=== PATIENT | female | born 1945 | race African-American/Black ===

== ENCOUNTER 2016-09-21 16:17 | Inpatient (IN) | payer OTHER ==
[~2016-09-21] VITALS: Ht 162.6 cm; Wt 89.2 kg
[~2016-09-21 16:17] MED LIST: ALBU0.084 NEB; ASPI-231 PO; CEPH250C PO; CLON0.1T PO; FLUT50SP13; FURO40TA4 PO; GABA300C8 PO; IRONTAB35 OR; LISI40TA; METO25TA62 PO; NORT25CA PO; PANT40TA2 PO; [UNRECOGNIZED DRUG - CODE] PO
[2016-09-21 17:34] LABS: Basophils # (auto) 0 uL; Basophils % (auto) 0.2 % (0.0-2.0); Eosinophils # (auto) 0.3 uL; Eosinophils % (auto) 3.4 % (0.0-7.0); Hemoglobin 11.1 g/dL (12.2-16.2); Lymphocytes % (auto) 26.8 % (10.0-50.0); Mean Corpuscular Hemoglobin 29.5 pg (28.0-32.0); Mean Corpuscular Hgb Conc. 32.7 g/dL (32.0-36.0); Mean Corpuscular Volume 90.3 fL (80.0-100.0); Mean Platelet Volume 8.8 fL (7.4-10.4); Monocytes # (auto) 0.5 uL; Neutrophils # (auto) 4.7 uL; Neutrophils % (auto) 62.6 % (37.0-80.0); Platelet Count (auto) 295 10^3/uL (140-450); Red Cell Distribution Width 14.6 % (11.6-16.0); White Blood Cell 7.5 10^3/uL (4.4-10.8)
[2016-09-21 17:53] LABS: Albumin 2.7 g/dL (3.4-5.0); BUN/Creatinine Ratio 10.6; Calcium 8.3 mg/dL (8.5-10.1)
[2016-09-21 17:56] LABS: Bilirubin, Total 0.8 mg/dL (0.2-1.0); Total Protein 7.7 g/dL (6.4-8.2)
[2016-09-21 18:02] LABS: Potassium 2.9 mmol/L (3.5-5.1)
[2016-09-21 23:03] LABS: Urine Bilirubin Negative (Negative); Urine Blood Negative /uL (Negative); Urine Color Yellow (Yellow); Urine Glucose Normal (Normal); Urine Hyaline Cast FEW /lpf (0 - 2); Urine Ketone Negative (Negative); Urine Nitrite Negative (Negative); Urine RBC <1 /hpf (0 - 4); Urine Squamous Epithelial Cell FEW /hpf (<5); Urine Urobilinogen Normal (Negative); Urine pH 6.5 (5.0-8.0)
[2016-09-22] MEDS ORDERED: SODIUM CHLORIDE 0.9% 1,000 ML IVB ONE (02:56)
[2016-09-22] MEDS ORDERED: ONDANSETRON HCL 4 MG/2 ML VIAL IV ONE (03:00)
[2016-09-22 03:21] LABS: Basophils # (auto) 0 uL; Basophils % (auto) 0.5 % (0.0-2.0); Eosinophils # (auto) 0.1 uL; Eosinophils % (auto) 1.1 % (0.0-7.0); Hematocrit 35.7 % (36.0-46.0); Lymphocytes # (auto) 2.7 uL; Lymphocytes % (auto) 28.2 % (10.0-50.0); Mean Corpuscular Hgb Conc. 33.8 g/dL (32.0-36.0); Mean Corpuscular Volume 88.8 fL (80.0-100.0); Monocytes # (auto) 0.6 uL; Monocytes % (auto) 6.2 % (0.0-12.0); Neutrophils # (auto) 6.2 uL; Platelet Count (auto) 253 10^3/uL (140-450); Red Cell Distribution Width 14.4 % (11.6-16.0); White Blood Cell 9.7 10^3/uL (4.4-10.8)
[2016-09-22] MEDS ORDERED: cloNIDine HCL 0.1 MG TAB PO ONE (04:15)
[2016-09-22] MEDS: POTASSIUM CHL 20MEQ/100ML 100 ML IV SCH ×2 (04:19→08:00)
[2016-09-22 04:30] LABS: Urine RBC None Seen /hpf (0 - 4)
[2016-09-22] MEDS ORDERED: cefTRIAXone 1GM/50ML D5W 50 ML IV ONE (04:30)
[2016-09-22 04:50] LABS: Urine Bilirubin Negative (Negative); Urine Blood Negative /uL (Negative); Urine Color Yellow (Yellow); Urine Glucose Normal (Normal); Urine Hyaline Cast FEW /lpf (0 - 2); Urine Ketone Negative (Negative); Urine Nitrite Negative (Negative); Urine Squamous Epithelial Cell FEW /hpf (<5); Urine Urobilinogen Normal (Negative); Urine pH 6.5 (5.0-8.0)
[2016-09-22 08:07] LABS: INR 1.2 (0.9-1.15); Prothrombin Time 12.4 sec (9.37-12.3)
[2016-09-22] MEDS ORDERED: DOCUSATE SOD 100 MG CAP PO PRN (09:45)
[2016-09-22] MEDS ORDERED: NITROGLYCERIN 0.4 MG SL TAB SL PRN (09:45)
[2016-09-22] MEDS ORDERED: ACETAMINOPHEN 325 MG TAB PO PRN (09:45)
[2016-09-22] MEDS ORDERED: MORPHINE SULF INJ 2 MG/ML SYRINGE 1ML IV PRN ×2 (09:45)
[2016-09-22] MEDS ORDERED: ONDANSETRON HCL 4 MG/2 ML VIAL IV PRN (09:45)
[2016-09-22] MEDS ORDERED: TEMAZEPAM 15 MG CAP PO PRN (09:45)
[2016-09-22] MEDS: HCTZ 25 MG TAB PO SCH (09:54)
[2016-09-22] MEDS: FLUTICASONE PROP NASAL SPR 0.05 % (50MCG) 16GM EACHNOSTRI SCH ×2 (09:54→21:52)
[2016-09-22] MEDS ORDERED: FAMOTIDINE 20 MG TAB PO SCH (10:00)
[2016-09-22] MEDS: POTASSIUM CHLORIDE 8 MEQ TAB PO SCH (10:11)
[2016-09-22] MEDS: ASPirin-EC 81 mg tab PO SCH (10:13)
[2016-09-22] MEDS: FUROSEMIDE 40 MG TAB PO SCH (10:13)
[2016-09-22] MEDS: MULTIPLE VITAMIN TAB PO SCH (10:13)
[2016-09-22] MEDS: PANTOPRAZOLE 40 MG TAB PO SCH (10:13)
[2016-09-22] MEDS: LISINOPRIL 20 MG TAB PO SCH ×2 (10:14→21:50)
[2016-09-22] MEDS: CYANOCOBALAMIN 500 MCG TAB PO SCH (10:14)
[2016-09-22] MEDS: METOPROLOL SUCCINATE XL 50 MG TAB PO SCH ×2 (10:14→17:11)
[2016-09-22] MEDS: ENOXAPARIN SOD 40 MG/0.4 ML SYRINGE SC SCH (10:15)
[2016-09-22] MEDS: NORTRIPTYLINE HCL 25 MG CAP PO SCH ×2 (10:24→21:50)
[2016-09-22] MEDS: BOOST PLUS 8 ounce PO SCH ×3 (12:00→20:09)
[2016-09-22] MEDS: SODIUM CHLOR 0.9% PF (SALINE LOCK) 10ML VIAL IV SCH ×2 (12:50→20:09)
[2016-09-22] MEDS: GABAPENTIN 300 MG CAP PO SCH ×2 (14:00→21:50)
[2016-09-22 14:31] LABS: BUN/Creatinine Ratio 10.2; Potassium 3.9 mmol/L (3.5-5.1)
[2016-09-22] MEDS: FERROUS SULFATE 325 MG TAB PO SCH (18:00)
[2016-09-22 20:45] VITALS: BP 237/99
[2016-09-22 21:00] VITALS: BP 237/99
[2016-09-22 22:36] LABS: Temperature: 22.2 C (20.0-25.0)
[2016-09-22] MEDS: cloNIDine HCL 0.1 MG TAB PO PRN (22:48)
[2016-09-23] VITALS (7 sets, daily range): BP systolic 143–237; BP diastolic 72–99
[2016-09-23] MEDS: cloNIDine HCL 0.1 MG TAB PO PRN ×2 (04:49→17:08)
[2016-09-23 05:33] LABS: Basophils # (auto) 0 uL; Basophils % (auto) 0.5 % (0.0-2.0); Eosinophils # (auto) 0.5 uL; Eosinophils % (auto) 4.5 % (0.0-7.0); Hematocrit 33.8 % (36.0-46.0); Hemoglobin 11.1 g/dL (12.2-16.2); Lymphocytes # (auto) 3.6 uL; Lymphocytes % (auto) 34.2 % (10.0-50.0); Mean Corpuscular Hemoglobin 29.9 pg (28.0-32.0); Mean Corpuscular Hgb Conc. 32.7 g/dL (32.0-36.0); Mean Corpuscular Volume 91.5 fL (80.0-100.0); Mean Platelet Volume 8.9 fL (7.4-10.4); Monocytes # (auto) 0.9 uL; Monocytes % (auto) 8.2 % (0.0-12.0); Neutrophils # (auto) 5.5 uL; Neutrophils % (auto) 52.6 % (37.0-80.0); Platelet Count (auto) 218 10^3/uL (140-450); Red Cell Distribution Width 14.4 % (11.6-16.0); White Blood Cell 10.6 10^3/uL (4.4-10.8)
[2016-09-23] MEDS: BOOST PLUS 8 ounce PO SCH ×4 (06:00→22:00)
[2016-09-23 06:10] LABS: Albumin 2.6 g/dL (3.4-5.0); BUN/Creatinine Ratio 10.7; Calcium 8.8 mg/dL (8.5-10.1); Potassium 3.4 mmol/L (3.5-5.1)
[2016-09-23 06:12] LABS: Bilirubin, Total 0.8 mg/dL (0.2-1.0); Total Protein 7.3 g/dL (6.4-8.2)
[2016-09-23] MEDS: SODIUM CHLOR 0.9% PF (SALINE LOCK) 10ML VIAL IV SCH ×3 (07:04→22:51)
[2016-09-23] MEDS: METOPROLOL SUCCINATE XL 50 MG TAB PO SCH ×2 (07:05→17:04)
[2016-09-23] MEDS: GABAPENTIN 300 MG CAP PO SCH ×3 (07:05→22:50)
[2016-09-23] MEDS: FERROUS SULFATE 325 MG TAB PO SCH ×2 (08:04→17:43)
[2016-09-23] MEDS ORDERED: ADENOSINE 79 MG in GIVE UN-DILUTED 0 ML IV ONE (08:45)
[2016-09-23] MEDS ORDERED: cefTRIAXone 1GM/50ML D5W 50 ML IV SCH (09:00)
[2016-09-23] MEDS: FLUTICASONE PROP NASAL SPR 0.05 % (50MCG) 16GM EACHNOSTRI SCH ×2 (09:42→22:47)
[2016-09-23] MEDS: ASPirin-EC 81 mg tab PO SCH (09:42)
[2016-09-23] MEDS: POTASSIUM CHLORIDE 8 MEQ TAB PO SCH (09:45)
[2016-09-23] MEDS: NORTRIPTYLINE HCL 25 MG CAP PO SCH ×2 (09:45→22:50)
[2016-09-23] MEDS: MULTIPLE VITAMIN TAB PO SCH (09:45)
[2016-09-23] MEDS: CYANOCOBALAMIN 500 MCG TAB PO SCH (09:45)
[2016-09-23] MEDS: FUROSEMIDE 40 MG TAB PO SCH (09:46)
[2016-09-23] MEDS: PANTOPRAZOLE 40 MG TAB PO SCH (09:46)
[2016-09-23] MEDS: HCTZ 25 MG TAB PO SCH (09:47)
[2016-09-23] MEDS: LISINOPRIL 20 MG TAB PO SCH ×2 (09:47→22:51)
[2016-09-23] MEDS: ENOXAPARIN SOD 40 MG/0.4 ML SYRINGE SC SCH (09:47)
[2016-09-23] MEDS ORDERED: SENNA 8.6 MG TAB PO SCH (22:00)
[2016-09-24 01:23] VITALS: BP 141/69
[2016-09-24 05:00] VITALS: BP 162/69
[2016-09-24 05:39] VITALS: BP 129/72
[2016-09-24] MEDS: BOOST PLUS 8 ounce PO SCH ×2 (06:51→11:23)
[2016-09-24] MEDS: METOPROLOL SUCCINATE XL 50 MG TAB PO SCH (06:51)
[2016-09-24] MEDS: SODIUM CHLOR 0.9% PF (SALINE LOCK) 10ML VIAL IV SCH ×2 (06:51→13:26)
[2016-09-24] MEDS: GABAPENTIN 300 MG CAP PO SCH ×2 (06:51→13:26)
[2016-09-24 07:07] LABS: Calcium 8.9 mg/dL (8.5-10.1); Magnesium 1.9 mg/dL (1.6-2.6); Potassium 3.4 mmol/L (3.5-5.1)
[2016-09-24] MEDS: FERROUS SULFATE 325 MG TAB PO SCH (08:38)
[2016-09-24 08:59] VITALS: BP 142/63
[2016-09-24] MEDS: FLUTICASONE PROP NASAL SPR 0.05 % (50MCG) 16GM EACHNOSTRI SCH (10:06)
[2016-09-24] MEDS: ENOXAPARIN SOD 40 MG/0.4 ML SYRINGE SC SCH (10:06)
[2016-09-24] MEDS: POTASSIUM CHLORIDE 8 MEQ TAB PO SCH (10:07)
[2016-09-24] MEDS: ASPirin-EC 81 mg tab PO SCH (10:07)
[2016-09-24] MEDS: PANTOPRAZOLE 40 MG TAB PO SCH (10:07)
[2016-09-24] MEDS: CYANOCOBALAMIN 500 MCG TAB PO SCH (10:07)
[2016-09-24] MEDS: NORTRIPTYLINE HCL 25 MG CAP PO SCH (10:07)
[2016-09-24] MEDS: MULTIPLE VITAMIN TAB PO SCH (10:07)
[2016-09-24] MEDS: LISINOPRIL 20 MG TAB PO SCH (10:08)
[2016-09-24] MEDS: FUROSEMIDE 40 MG TAB PO SCH (10:08)
[2016-09-24 12:30] VITALS: BP 151/78
== END 2016-09-24 16:00 | disposition home health service (06) | DRG 291 ==
LOC: ER 16:23 → TELE 16:24 → DOU IN ICU 09-22 20:45 → TELE-EAST 09-23 19:08
PROVIDERS: ADMIT Internal Medicine; ATTEND Hospitalist
DX: I50.33 Acute on chronic diastolic (congestive) heart failure (principal); E43 Unspecified severe protein-calorie malnutrition; I13.0 Hypertensive heart and chronic kidney disease with heart failure and stage 1 through stage 4 chronic kidney disease, or unspecified chronic kidney disease; N39.0 Urinary tract infection, site not specified; D68.9 Coagulation defect, unspecified; K52.9 Noninfective gastroenteritis and colitis, unspecified; E87.6 Hypokalemia; D63.8 Anemia in other chronic diseases classified elsewhere; M10.9 Gout, unspecified; N18.3 Chronic kidney disease, stage 3 (moderate); I25.10 Atherosclerotic heart disease of native coronary artery without angina pectoris; E83.51 Hypocalcemia; E86.0 Dehydration; K59.00 Constipation, unspecified; W19.XXXA Unspecified fall, initial encounter; B19.20 Unspecified viral hepatitis C without hepatic coma; Z82.49 Family history of ischemic heart disease and other diseases of the circulatory system; D64.9 Anemia, unspecified; Z83.3 Family history of diabetes mellitus; Z90.49 Acquired absence of other specified parts of digestive tract; Y92.89 Other specified places as the place of occurrence of the external cause; Z79.899 Other long term (current) drug therapy; Z98.51 Tubal ligation status; Z79.82 Long term (current) use of aspirin; Z88.8 Allergy status to other drugs, medicaments and biological substances; Z68.33 Body mass index [BMI] 33.0-33.9, adult
CPT/HCPCS: 36415; 70450; 71010; 74176; 78452; 80048; 80053; 81001; 83735; 83880; 84443; 84484; 85025; 85610; 87081; 87086; 92610; 93005; 93017; 93886; 96361; 96365; 96372; 96375; J0153; J0696; J2405; J3480

== ENCOUNTER 2017-07-25 15:54 | Emergency (ER) | payer OTHER ==
[~2017-07-25] VITALS: Ht 162.6 cm; Wt 81.6 kg
[~2017-07-25 15:54] MED LIST changes: -CEPH250C PO; +CYAN100T PO; +GABA300C10 PO; -GABA300C8 PO; -[UNRECOGNIZED DRUG - CODE] PO
[2017-07-25 20:08] LABS: Basophils # (auto) 0.1 uL; Basophils % (auto) 1.2 % (0.0-2.0); Eosinophils # (auto) 0.4 uL; Eosinophils % (auto) 3.7 % (0.0-7.0); Hematocrit 39.8 % (36.0-46.0); Hemoglobin 13.3 g/dL (12.2-16.2); Lymphocytes # (auto) 3.4 uL; Lymphocytes % (auto) 33.8 % (10.0-50.0); Mean Corpuscular Hemoglobin 31.1 pg (28.0-32.0); Mean Corpuscular Hgb Conc. 33.5 g/dL (32.0-36.0); Monocytes # (auto) 0.8 uL; Monocytes % (auto) 7.7 % (0.0-12.0); Neutrophils # (auto) 5.3 uL; Neutrophils % (auto) 53.6 % (37.0-80.0); Nucleated Red Blood Cells % 0.1 %; Platelet Count (auto) 351 10^3/uL (140-450); Red Blood Cells 4.28 10^6/uL (4.0-5.20); Red Cell Distribution Width 13.1 % (11.8-14.3); White Blood Cell 9.9 10^3/uL (4.4-10.8)
[2017-07-25 20:24] LABS: Albumin 3.3 g/dL (3.4-5.0); BUN/Creatinine Ratio 12.4; Calcium 9.6 mg/dL (8.5-10.1); Potassium 3.6 mmol/L (3.5-5.1)
[2017-07-25 20:33] LABS: Bilirubin, Total 0.5 mg/dL (0.2-1.0); Total Protein 8.6 g/dL (6.4-8.2)
[2017-07-26] MEDS ORDERED: SODIUM CHLORIDE 0.9% 500 ML IV ONE (00:15)
[2017-07-26] MEDS ORDERED: MORPHINE SULFATE 10 MG/ML INJ 1ML SDV IV ONE (00:15)
[2017-07-26] MEDS ORDERED: ONDANSETRON HCL 4 MG/2 ML VIAL IV ONE (00:15)
[2017-07-26 02:45] VITALS: BP 118/72
== END 2017-07-26 01:49 | disposition home or self-care (01) ==
LOC: ER 15:58
DX: E86.0 Dehydration (principal); R06.02 Shortness of breath; N28.9 Disorder of kidney and ureter, unspecified; I50.9 Heart failure, unspecified; I11.0 Hypertensive heart disease with heart failure; M10.9 Gout, unspecified; I25.10 Atherosclerotic heart disease of native coronary artery without angina pectoris; Z98.51 Tubal ligation status; Z90.49 Acquired absence of other specified parts of digestive tract; Z88.6 Allergy status to analgesic agent
CPT/HCPCS: 36415; 71046; 80053; 84484; 85025; 93005; 96361; 96374; 96375; 99285; J2270; J2405; J7030

== ENCOUNTER 2019-04-10 22:19 | Inpatient (IN) | payer OTHER ==
[~2019-04-10] VITALS: Ht 162.6 cm; Wt 76.2 kg
[2019-04-10] MEDS ORDERED: cloNIDine HCL 0.1 MG TAB PO ONE (23:15)
[2019-04-10] MEDS ORDERED: hydrALAZINE HCL 20 MG/ML VL ONE (23:34)
[2019-04-10 23:37] LABS: Basophils # (auto) 0 uL; Basophils % (auto) 0.5 % (0.0-2.0); Eosinophils # (auto) 0.3 uL; Eosinophils % (auto) 3.1 % (0.0-7.0); Hematocrit 33.1 % (36.0-46.0); Hemoglobin 11.3 g/dL (12.2-16.2); Lymphocytes # (auto) 2.3 uL; Lymphocytes % (auto) 24.7 % (10.0-50.0); Mean Corpuscular Hemoglobin 30.7 pg (28.0-32.0); Mean Corpuscular Hgb Conc. 34.2 g/dL (32.0-36.0); Mean Corpuscular Volume 89.7 fL (80.0-100.0); Monocytes # (auto) 0.6 uL; Monocytes % (auto) 6.4 % (0.0-12.0); Neutrophils % (auto) 65.3 % (37.0-80.0); Platelet Count (auto) 206 10^3/uL (140-450); Red Blood Cells 3.68 10^6/uL (4.0-5.20); Red Cell Distribution Width 13.4 % (11.8-14.3); White Blood Cell 9.2 10^3/uL (4.4-10.8)
[2019-04-10 23:45] LABS: Urine Bacteria FEW /hpf (None Seen); Urine Blood Negative /uL (Negative); Urine Hyaline Cast FEW /lpf (0 - 2); Urine Specific Gravity 1.008 (1.001-1.035); Urine WBC 8 /hpf (0 - 5)
[2019-04-10] MEDS ORDERED: hydrALAZINE HCL 20 MG/ML VL IV ONE (23:45)
[2019-04-10 23:54] LABS: INR 1.04 (0.9-1.15); Partial Thromboplastin Time 24.9 sec (23.64-32.05)
[2019-04-10 23:56] LABS: Albumin 3.7 g/dL (3.4-5.0); Calcium 9.7 mg/dL (8.5-10.1); Magnesium 2.1 mg/dL (1.6-2.6); Potassium 3.2 mmol/L (3.5-5.1)
[2019-04-11] LABS: Bilirubin, Total 0.6 mg/dL (0.2-1.0); Total Protein 8.7 g/dL (6.4-8.2)
[2019-04-11] MEDS ORDERED: hydrALAZINE HCL 20 MG/ML VL IV ONE (01:15)
[2019-04-11] MEDS ORDERED: LABETALOL HCL 200 MG TAB PO ONE (02:00)
[2019-04-11] MEDS ORDERED: NICARDIPINE 25MG/250ML BAG KIT 250 ML IV SCH (03:45)
[2019-04-11] MEDS ORDERED: NICARDIPINE 25MG/250ML BAG KIT 250 ML IV ONE (03:48)
[2019-04-11] MEDS ORDERED: NITROGLYCERIN 0.4 MG SL TAB SL PRN (07:45)
[2019-04-11] MEDS ORDERED: DOCUSATE SOD 100 MG CAP PO PRN (07:45)
[2019-04-11] MEDS ORDERED: ACETAMINOPHEN 500 MG TAB PO PRN (07:45)
[2019-04-11] MEDS ORDERED: ONDANSETRON HCL 4 MG/2 ML VIAL IV PRN (07:45)
[2019-04-11] MEDS ORDERED: MORPHINE SULF INJ 2 MG/ML SYRINGE 1ML IV PRN ×2 (07:45)
[2019-04-11] MEDS: cefTRIAXone 1GM/50ML D5W 50 ML IV SCH (09:05)
[2019-04-11] MEDS: ASPirin-EC 81 mg tab PO SCH (09:05)
[2019-04-11] MEDS: ISOSORBIDE MONONITRATE ER 60 MG TAB PO SCH (09:05)
[2019-04-11] MEDS: GABAPENTIN 300 MG CAP PO SCH ×2 (09:06→22:01)
[2019-04-11] MEDS: FAMOTIDINE 20 MG TAB PO SCH (09:06)
[2019-04-11] MEDS: METOPROLOL TARTRATE 50 MG TAB PO SCH ×2 (09:06→22:01)
[2019-04-11] MEDS: hydrALAZINE HCL 20 MG/ML VL IV PRN ×3 (09:18→23:57)
[2019-04-11 11:21] LABS: Protein, Urine 379.6 mg/dL (0.0-11.9)
[2019-04-11] MEDS ORDERED: POTASSIUM CHL 20 Meq TABLET PO ONE (11:30)
[2019-04-11 12:16] VITALS: BP 151/73
[2019-04-11 13:00] VITALS: BP 151/73
[2019-04-11] MEDS: LISINOPRIL 20 MG TAB PO SCH (13:20)
[2019-04-11 14:43] LABS: BUN/Creatinine Ratio 8.8; Calcium 8.9 mg/dL (8.5-10.1); Magnesium 1.9 mg/dL (1.6-2.6); Potassium 3.1 mmol/L (3.5-5.1)
[2019-04-11 17:00] VITALS: BP 170/75
[2019-04-11] MEDS ORDERED: POTASSIUM EFFERVESENT TAB 25 MEQ PO ONE (17:15)
[2019-04-11] MEDS ORDERED: SODIUM CHLORIDE 0.9% 500 ML IV ONE (17:15)
--- NOTE | 2019-04-11 18:37 | NUR ---
Discharge planning per consult, patient has orders for a home health evaluation. Referral was sent to [facility]. Placed a follow up call, spoke with Nandini and was advised that they will accept patient and start of care will be within 24-48 hours upon discharge. Auth request was faxed to CM. Addendum: 04/11/19 at 1839 by JUNO ANGULO Amended: Links added. Addendum: 04/12/19 at 1639 by JUNO ANGULO Received an updated order for home health with BP monitoring and follow up and CHF clinic referral. Updated order was faxed to Balbir and [facility]. Balbir has patient on schedule to be seen tomorrow 10.2.19. CM-CM will arrange for follow up and referral appts.
--- NOTE | 2019-04-11 19:30 | NUR ---
Opening shift note Patient in bed alert and oriented x 4, verbally coherent, able to make needs known. Patient's respiration even and unlabored, denies pain and discomfort at this time. Pt on the phone with family will continue to monitor.
[2019-04-11 21:53] VITALS: BP 142/82
[2019-04-12 05:00] VITALS: BP 156/85
[2019-04-12] MEDS: hydrALAZINE HCL 20 MG/ML VL IV PRN ×2 (05:33→05:35)
[2019-04-12 06:31] LABS: Basophils # (auto) 0.1 uL; Basophils % (auto) 0.8 % (0.0-2.0); Eosinophils # (auto) 0.3 uL; Eosinophils % (auto) 4.1 % (0.0-7.0); Hematocrit 27.2 % (36.0-46.0); Hemoglobin 9.6 g/dL (12.2-16.2); Lymphocytes # (auto) 2.6 uL; Lymphocytes % (auto) 33.2 % (10.0-50.0); Mean Corpuscular Hemoglobin 31.1 pg (28.0-32.0); Mean Corpuscular Hgb Conc. 35.3 g/dL (32.0-36.0); Mean Corpuscular Volume 88.2 fL (80.0-100.0); Monocytes # (auto) 0.5 uL; Monocytes % (auto) 6.9 % (0.0-12.0); Neutrophils # (auto) 4.3 uL; Platelet Count (auto) 191 10^3/uL (140-450); Red Blood Cells 3.08 10^6/uL (4.0-5.20); Red Cell Distribution Width 13.7 % (11.8-14.3); White Blood Cell 7.8 10^3/uL (4.4-10.8)
[2019-04-12 06:58] LABS: BUN/Creatinine Ratio 9.1; Calcium 8.6 mg/dL (8.5-10.1); Magnesium 1.9 mg/dL (1.6-2.6); Potassium 4.3 mmol/L (3.5-5.1)
--- NOTE | 2019-04-12 07:30 | NUR ---
Opening Shift Note Assuming care of patient at this time. Patient is awake sitting up on edge of bed. Patient denies pain. Patient shows no signs or symptoms of distress or shortness of breath. Instructed patient on the plan of care for today and to call for assistance as needed. Patient is having some periods of confusion. Patient believes she is at "[facility]." When asked the date, patient responded with, "August 27, [birth year]19." Call light within reach. Will continue to round hourly and as needed.
[2019-04-12 08:35] VITALS: BP 204/87
[2019-04-12] MEDS: cefTRIAXone 1GM/50ML D5W 50 ML IV SCH (08:38)
[2019-04-12] MEDS: METOPROLOL TARTRATE 50 MG TAB PO SCH (08:39)
[2019-04-12] MEDS: GABAPENTIN 300 MG CAP PO SCH (08:39)
[2019-04-12] MEDS: ASPirin-EC 81 mg tab PO SCH (08:39)
[2019-04-12] MEDS: FAMOTIDINE 20 MG TAB PO SCH (08:40)
[2019-04-12] MEDS: ISOSORBIDE MONONITRATE ER 60 MG TAB PO SCH (08:40)
[2019-04-12] MEDS: LISINOPRIL 20 MG TAB PO SCH (08:42)
[2019-04-12 09:54] VITALS: BP 174/88
[2019-04-12] MEDS ORDERED: METOPROLOL TARTRATE 25 MG TAB PO SCH ×2 (10:00→22:00)
[2019-04-12] MEDS ORDERED: amLODIPine BESYLATE 5 MG TAB PO SCH ×2 (10:00)
[2019-04-12] MEDS ORDERED: cloNIDine HCL 0.1 MG TAB PO PRN (10:00)
[2019-04-12] MEDS ORDERED: METOPROLOL TARTRATE 25 MG TAB PO ONE ×2 (10:15)
--- NOTE | 2019-04-12 11:16 | NUR ---
Cardiac Clearance Spoke to Dr. Mcclain, patient is clear for discharge. Patient needs to follow-up with Dr. Mcclain as an outpatient. Will notify Dr. Ybarra.
[2019-04-12 11:30] VITALS: BP 136/61
--- NOTE | 2019-04-12 11:41 | NUR ---
Nephrology Clearance Spoke with Dr. Alvarenga at nurses' station. Patient is clear for discharge and needs to follow-up as an outpatient in 1-2 weeks. Will notify
[2019-04-12] MEDS ORDERED: AML5T PO (11:59)
[2019-04-12] MEDS ORDERED: CLO01T PO (11:59)
[2019-04-12] MEDS ORDERED: METO25TA5 PO (11:59)
[2019-04-12] MEDS ORDERED: ISO60SRT PO (11:59)
[2019-04-12] MEDS ORDERED: CEPH-37 PO (12:23)
[2019-04-12 12:58] VITALS: BP 138/74
[2019-04-12 13:20] VITALS: BP 125/66
--- NOTE | 2019-04-12 14:46 | NUR ---
Discharge Discharge instructions given as ordered. Encourage to follow up with PMD as instructed. All questions and concerns addressed. Patient verbalized understanding. Medication reconciliation form completed and copy given to patient. Patient educated on new medications and which medications to continue at home. Patient and son verbalized understanding. IVs removed with catheter intact, pressure dressing applied. Telemetry unit returned to ICU. Patient taken to vehicle via wheelchair with all personal belongings, accompanied by staff and family member. No distress noted at time of departure.
[2019-04-13 08:06] LABS: RPR Non Reactive (Non Reactive)
[2019-04-13 09:06] LABS: Immunoglobulin G, Serum 1640 mg/dL (700-1600)
[2019-04-14 09:24] LABS: Hepatitis B Surface Antibody Negative
[2019-04-14 11:50] LABS: Hepatitis C Antibody Positive (Negative)
== END 2019-04-12 14:35 | disposition home health service (06) | DRG 304 ==
LOC: ER 22:23 → TELE 22:24 → TELE-WESTW 04-11 11:53
PROVIDERS: ADMIT Nurse Practitioner Acute Care; ATTEND Internal Medicine
DX: I16.0 Hypertensive urgency (principal); N17.0 Acute kidney failure with tubular necrosis; N39.0 Urinary tract infection, site not specified; I50.32 Chronic diastolic (congestive) heart failure; N18.4 Chronic kidney disease, stage 4 (severe); I13.0 Hypertensive heart and chronic kidney disease with heart failure and stage 1 through stage 4 chronic kidney disease, or unspecified chronic kidney disease; D63.1 Anemia in chronic kidney disease; E78.5 Hyperlipidemia, unspecified; M10.9 Gout, unspecified; D64.9 Anemia, unspecified; I25.10 Atherosclerotic heart disease of native coronary artery without angina pectoris; E87.6 Hypokalemia; G62.9 Polyneuropathy, unspecified; K21.9 Gastro-esophageal reflux disease without esophagitis; T50.1X5A Adverse effect of loop [high-ceiling] diuretics, initial encounter; N18.3 Chronic kidney disease, stage 3 (moderate); Z90.49 Acquired absence of other specified parts of digestive tract; Z90.89 Acquired absence of other organs; Z98.51 Tubal ligation status; Z88.5 Allergy status to narcotic agent; Z79.899 Other long term (current) drug therapy
CPT/HCPCS: 36415; 70450; 71045; 76775; 80048; 80053; 81001; 82088; 82306; 82570; 82784; 83735; 83880; 83970; 84100; 84156; 84244; 84300; 84484; 85025; 85610; 85730; 86038; 86334; 86335; 86592; 86706; 86803; 87086; 93005; 93306; 96365; 96367; 96375; G0378; J0696

== ENCOUNTER 2019-12-23 17:02 | Inpatient (IN) | payer OTHER ==
[~2019-12-23] VITALS: Ht 160 cm; Wt 62.2 kg
[~2019-12-23 17:02] MED LIST changes: -ALBU0.084 NEB; -ASPI-231 PO; -CLON0.1T PO; -CYAN100T PO; -FLUT50SP13; -FURO40TA4 PO; -GABA300C10 PO; -IRONTAB35 OR; -LISI40TA; -METO25TA62 PO; +NITR-87 PO; -NORT25CA PO; -PANT40TA2 PO
[2019-12-23 18:04] LABS: Basophils # (auto) 0 10 ^3/uL (0-0.2); Basophils % (auto) 0.3 % (0.0-2.0); Eosinophils # (auto) 0 10 ^3/uL (0-0.8); Eosinophils % (auto) 0.4 % (0.0-7.0); Monocytes # (auto) 0.4 10 ^3/uL (0-1.3)
[2019-12-23 18:06] LABS: Hematocrit 16.6 % (36.0-46.0); Lymphocytes # (auto) 0.8 10 ^3/uL (0.4-5.4); Lymphocytes % (auto) 10.3 % (10.0-50.0); Mean Corpuscular Volume 93.8 fL (80.0-100.0); Monocytes % (auto) 4.3 % (0.0-12.0); Neutrophils # (auto) 6.9 10 ^3/uL (1.6-8.6); Neutrophils % (auto) 84.7 % (37.0-80.0); Nucleated Red Blood Cells % 0.1 %; Platelet Count (auto) 399 10^3/uL (140-450); Red Blood Cells 1.77 10^6/uL (4.0-5.20); Red Cell Distribution Width 16.5 % (11.8-14.3); White Blood Cell 8.1 10^3/uL (4.4-10.8)
[2019-12-23 18:15] LABS: Hemoglobin 5.3 g/dL (12.2-16.2)
[2019-12-23 18:17] LABS: INR 1.19 (0.9-1.15); Partial Thromboplastin Time 24.2 sec (23.64-32.05)
[2019-12-23 18:18] LABS: Alanine Aminotransferase 27 U/L (13-56); Albumin 2.7 g/dL (3.4-5.0); Anion Gap 12 (5-15); Blood Alcohol < 3.0 mg/dL (0-5); Calcium 8.6 mg/dL (8.5-10.1); Carbon Dioxide 21 mmol/L (21-32); Chloride 98 mmol/L (98-107); Glucose 83 mg/dL (74-106); Potassium 5.2 mmol/L (3.5-5.1); Sodium 131 mmol/L (136-145)
[2019-12-23 18:24] LABS: Alkaline Phosphatase 62 U/L (45-117); Aspartate Aminotransferase 176 U/L (15-37); BUN/Creatinine Ratio 10.1; Bilirubin, Total 0.8 mg/dL (0.2-1.0); GFR African American 6 mL/min; GFR Non-African American 5 mL/min; Total Protein 7.4 g/dL (6.4-8.2)
[2019-12-23 18:55] LABS: Blood Urea Nitrogen 85 mg/dL (7-18)
[2019-12-23] MEDS ORDERED: SODIUM BICARBONATE 8.4% INJ 50ML SYRINGE IV ONE (19:15)
[2019-12-23] MEDS ORDERED: FLUTICASONE PROP NASAL SPR 0.05 % (50MCG) 16GM EACHNOSTRI ONE (19:15)
[2019-12-23] MEDS ORDERED: MORPHINE SULF INJ 2 MG/ML SYRINGE 1ML IV PRN ×3 (19:15→19:30)
[2019-12-23] MEDS ORDERED: SODIUM ZIRCONIUM CYCL 10 GM PAK PO ONE (19:15)
[2019-12-23] MEDS ORDERED: hydrALAZINE HCL 20 MG/ML VL IV PRN (19:15)
[2019-12-23] MEDS ORDERED: FUROSEMIDE 100 MG/10ML VIAL IV ONE (19:15)
[2019-12-23] MEDS ORDERED: NITROGLYCERIN 0.4 MG SL TAB SL PRN ×2 (19:15→19:30)
[2019-12-23] MEDS ORDERED: LORazepam 0.5 MG TAB PO PRN (19:30)
[2019-12-23] MEDS ORDERED: ONDANSETRON HCL 4 MG/2 ML VIAL IV PRN (19:30)
[2019-12-23] MEDS ORDERED: HYDROcodone-ACET 5/325MG TAB PO PRN (19:30)
[2019-12-23] MEDS ORDERED: ALUM & MAG HYDROX-SIMETH LIQ(MAALOX) 30 ML PO PRN (19:30)
[2019-12-23 19:58] LABS: % Iron Saturation 17.7 % (15-50)
[2019-12-23] MEDS: cefTRIAXone 1GM/50ML D5W 50 ML IV SCH (20:06)
[2019-12-23] MEDS: FLUTICASONE PROP NASAL SPR 0.05 % (50MCG) 16GM EACHNOSTRI SCH (20:07)
[2019-12-23 21:17] VITALS: BP 128/59
[2019-12-23 21:32] VITALS: BP 123/63
--- NOTE | 2019-12-23 22:03 | NUR ---
Telemetry admit from ER YUAN LING admitted to Telemetry unit after SBAR received. Patient oriented to Krista Mendiola, primary RN, unit, room, bed, and unit policies regarding patient care and visiting hours. Patient now on continuous telemetry monitoring, tele box 68# and telemetry reading on arrival to unit is NSR 72. Patient placed on bedside oxygen, weighed by bedscale and encouraged to call if they need something. All questions and concerns addressed, patient verbalized understanding. Note:
[2019-12-23 22:28] VITALS: BP 134/69
[2019-12-23 22:41] VITALS: BP 133/56
[2019-12-23] MEDS ORDERED: LORazepam 2MG/ML-1ML VIAL IV PRN (23:15)
[2019-12-23] MEDS: NORTRIPTYLINE HCL 10 MG CAP PO SCH (23:42)
[2019-12-23] MEDS: ISOSORBIDE MONONITRATE IR 20 MG TAB PO SCH (23:43)
[2019-12-23] MEDS: SODIUM ZIRCONIUM CYCL 10 GM PAK PO SCH (23:44)
[2019-12-23] MEDS: DOCUSATE SOD 100 MG CAP PO PRN (23:45)
[2019-12-23] MEDS: MONTELUKAST SODIUM 10 MG TAB PO SCH (23:45)
[2019-12-24] VITALS (21 sets, daily range): BP systolic 110–144; BP diastolic 51–76
[2019-12-24] MEDS ORDERED: FUROSEMIDE 40 MG/4 ML VIAL IV ONE (00:20)
--- NOTE | 2019-12-24 05:36 | NUR ---
PT TURNED WITH PROMPTING THROUGHOUT THE NIGHT [id number];DENIES ANY PAIN;VSS;CALL LIGHT IN REACH.
[2019-12-24 05:56] LABS: Basophils # (auto) 0 10 ^3/uL (0-0.2); Eosinophils # (auto) 0.1 10 ^3/uL (0-0.8); Monocytes # (auto) 0.4 10 ^3/uL (0-1.3)
[2019-12-24] MEDS: SODIUM ZIRCONIUM CYCL 10 GM PAK PO SCH ×3 (05:56→23:06)
[2019-12-24] MEDS ORDERED: FUROSEMIDE 40 MG/4 ML VIAL IV SCH (06:00)
[2019-12-24 06:01] LABS: Basophils % (auto) 0.2 % (0.0-2.0); Eosinophils % (auto) 1.1 % (0.0-7.0); Hematocrit 19.6 % (36.0-46.0); Lymphocytes % (auto) 14.9 % (10.0-50.0); Mean Corpuscular Hgb Conc. 32.8 g/dL (32.0-36.0); Mean Corpuscular Volume 91.5 fL (80.0-100.0); Monocytes % (auto) 6.4 % (0.0-12.0); Neutrophils # (auto) 5.2 10 ^3/uL (1.6-8.6); Neutrophils % (auto) 77.4 % (37.0-80.0); Nucleated Red Blood Cells % 0.3 %; Platelet Count (auto) 348 10^3/uL (140-450); Red Blood Cells 2.14 10^6/uL (4.0-5.20); Red Cell Distribution Width 15.6 % (11.8-14.3); White Blood Cell 6.8 10^3/uL (4.4-10.8)
[2019-12-24 06:08] LABS: Albumin 2.5 g/dL (3.4-5.0); Calcium 8.5 mg/dL (8.5-10.1); Magnesium 3.8 mg/dL (1.6-2.6); Potassium 4.6 mmol/L (3.5-5.1)
[2019-12-24 06:11] LABS: Phosphorus 4.3 mg/dL (2.5-4.90); Total Protein 7.3 g/dL (6.4-8.2)
[2019-12-24 06:21] LABS: Hemoglobin 6.4 g/dL (12.2-16.2)
[2019-12-24 06:22] LABS: BUN/Creatinine Ratio 10.3
--- NOTE | 2019-12-24 06:28 | NUR ---
DR BAKER INFORMED OF PT'S NEW HCT/HGB LEVELS AND ALSO PT'S BUN. ORDER FOR TWO MORE UNITS OF PRBC'S PLACED WITH INFORMED OF HIGH BUN OF 85;HOWEVER PT IS DUE TO HAVE DIALYSIS TODAY.
[2019-12-24] MEDS: cefTRIAXone 1GM/50ML D5W 50 ML IV SCH (08:15)
--- NOTE | 2019-12-24 09:54 | NUR ---
The 2 rd of Blood initiated Orders received and verified with additional nurse by read back. Baseline Vitals obtained and charted. Patient no complaints of pain. Initiated at rate 60 for 15 mins then increased as tolerated. Will continue to monitor patient for change or indications of reaction. Additional charting as follow in [facility] transfusion history.
[2019-12-24] MEDS ORDERED: PANTOPRAZOLE 40 MG/10 ML VIAL INJ IV SCH (10:00)
[2019-12-24] MEDS ORDERED: GABAPENTIN 300 MG CAP PO SCH ×2 (10:00→22:00)
[2019-12-24] MEDS: FLUTICASONE PROP NASAL SPR 0.05 % (50MCG) 16GM EACHNOSTRI SCH ×2 (10:02→22:00)
[2019-12-24] MEDS: METOPROLOL SUCCINATE XL 50 MG TAB PO SCH (10:03)
[2019-12-24] MEDS: ALLOPURINOL 100 MG TAB PO SCH (10:03)
[2019-12-24] MEDS: ISOSORBIDE MONONITRATE IR 20 MG TAB PO SCH ×2 (10:03→23:06)
[2019-12-24] MEDS ORDERED: LORazepam 0.5 MG TAB PO PRN (13:30)
[2019-12-24] MEDS ORDERED: PANT40T PO (13:36)
[2019-12-24] MEDS ORDERED: AMLO10TA13 PO (13:36)
--- NOTE | 2019-12-24 13:36 | NUR ---
Spoke to garage door service technician, will be done today.
[2019-12-24] MEDS: IRON SUCROSE COMPLEX 200 MG in SODIUM CHL 0.9% 100 ML IV SCH (14:01)
--- NOTE | 2019-12-24 14:22 | NUR ---
Dr. Bailon at bedside made aware of K 4.6, still need to continue with Rachel. Noted and carried it our.
[2019-12-24 15:19] LABS: Urine Bacteria FEW /hpf (None Seen); Urine Blood 1+ /uL (Negative); Urine Hyaline Cast MOD /lpf (0 - 2); Urine Mucus FEW (None Seen); Urine Specific Gravity 1.011 (1.001-1.035); Urine WBC 122 /hpf (0 - 5); Urine WBC Clumps PRESENT /hpf (None Seen)
--- NOTE | 2019-12-24 15:20 | NUR ---
The 3 rd of Blood initiated.
[2019-12-24 15:34] LABS: Alcohol, Urine < 3.0 mg/dL (0-10); Amphetamine Screen, Urine NEGATIVE (NEGATIVE); Barbiturate Scree,Urine NEGATIVE (NEGATIVE); Benzodiazephine Screen, Urine NEGATIVE (NEGATIVE); Cannabinoid Screen, Urine NEGATIVE (NEGATIVE); Cocaine Screen, Urine NEGATIVE (NEGATIVE); Opiate Scree,Urine POSITIVE (NEGATIVE); Phencyclidine Screen, Urine NEGATIVE (NEGATIVE)
[2019-12-24] MEDS ORDERED: ERGOCALCIFEROL 50,000 UNIT(1.25MG) CAP PO SCH (17:00)
[2019-12-24] MEDS: FUROSEMIDE 40 MG TAB PO SCH (17:29)
--- NOTE | 2019-12-24 19:25 | NUR ---
Opening Shift Note Pt is resting in bed with eyes closed and resp rate is even and unlabored. No s/s of any distress noted at thsi time. Lab is at bedside drawing blood for H&H level. Will continue to monitor pt q 1 hr and prn.
[2019-12-24 20:11] LABS: Hematocrit 30.4 % (36.0-46.0); Hemoglobin 9.9 g/dL (12.2-16.2)
[2019-12-24 20:23] LABS: INR 1.14 (0.9-1.15); Partial Thromboplastin Time 26.7 sec (23.64-32.05)
--- NOTE | 2019-12-24 21:15 | NUR ---
HGB is 9.9 at this time.
[2019-12-24] MEDS: NORTRIPTYLINE HCL 10 MG CAP PO SCH (22:00)
--- NOTE | 2019-12-24 22:05 | NUR ---
Dr Larry Ybarra at bedside.
[2019-12-24] MEDS: MONTELUKAST SODIUM 10 MG TAB PO SCH (23:07)
[2019-12-25 05:00] VITALS: BP 112/58
[2019-12-25] MEDS: SODIUM ZIRCONIUM CYCL 10 GM PAK PO SCH (06:24)
[2019-12-25 08:59] VITALS: BP 111/56
[2019-12-25] MEDS: ISOSORBIDE MONONITRATE IR 20 MG TAB PO SCH ×2 (09:20→22:43)
[2019-12-25] MEDS: METOPROLOL SUCCINATE XL 50 MG TAB PO SCH (09:20)
[2019-12-25] MEDS: cefTRIAXone 1GM/50ML D5W 50 ML IV SCH (09:21)
[2019-12-25] MEDS: ALLOPURINOL 100 MG TAB PO SCH (09:21)
[2019-12-25] MEDS: FUROSEMIDE 40 MG TAB PO SCH (09:21)
[2019-12-25] MEDS: FLUTICASONE PROP NASAL SPR 0.05 % (50MCG) 16GM EACHNOSTRI SCH ×2 (09:21→22:40)
[2019-12-25] MEDS ORDERED: FUROSEMIDE 20 MG TAB PO SCH (10:00)
[2019-12-25] MEDS ORDERED: GABAPENTIN 300 MG CAP PO SCH (10:00)
[2019-12-25 10:08] LABS: Basophils # (auto) 0 10 ^3/uL (0-0.2); Basophils % (auto) 0.2 % (0.0-2.0); Eosinophils # (auto) 0 10 ^3/uL (0-0.8); Eosinophils % (auto) 0.1 % (0.0-7.0); Hematocrit 26.6 % (36.0-46.0); Hemoglobin 8.7 g/dL (12.2-16.2); Lymphocytes # (auto) 0.7 10 ^3/uL (0.4-5.4); Lymphocytes % (auto) 7.8 % (10.0-50.0); Mean Corpuscular Hemoglobin 29.8 pg (28.0-32.0); Mean Corpuscular Hgb Conc. 32.7 g/dL (32.0-36.0); Mean Corpuscular Volume 91.1 fL (80.0-100.0); Monocytes # (auto) 0.4 10 ^3/uL (0-1.3); Monocytes % (auto) 4.2 % (0.0-12.0); Neutrophils # (auto) 8.1 10 ^3/uL (1.6-8.6); Neutrophils % (auto) 87.7 % (37.0-80.0); Nucleated Red Blood Cells % 0.3 %; Platelet Count (auto) 374 10^3/uL (140-450); Red Blood Cells 2.92 10^6/uL (4.0-5.20); Red Cell Distribution Width 16.5 % (11.8-14.3); White Blood Cell 9.2 10^3/uL (4.4-10.8)
[2019-12-25 10:18] LABS: Albumin 2.5 g/dL (3.4-5.0); Calcium 8.3 mg/dL (8.5-10.1); Potassium 3.8 mmol/L (3.5-5.1)
[2019-12-25 10:22] LABS: BUN/Creatinine Ratio 10.6; Bilirubin, Total 0.8 mg/dL (0.2-1.0); Total Protein 7.4 g/dL (6.4-8.2)
--- NOTE | 2019-12-25 11:38 | NUR ---
Dr. Lundberg paged regarding BUN 83 and K 3.8 if patient still need Lokelma , spoke Asa. to Awaiting to call back.
[2019-12-25] MEDS: IRON SUCROSE COMPLEX 200 MG in SODIUM CHL 0.9% 100 ML IV SCH (12:55)
[2019-12-25 13:00] VITALS: BP 122/70
--- NOTE | 2019-12-25 14:36 | NUR ---
Dr. Xiong paged regarding recommendation for anticoagulation and where HD cath can be placed . Awaiting to call back.
--- NOTE | 2019-12-25 16:28 | NUR ---
Dr. Smith at bedside, received new order, noted and carried it out.
[2019-12-25] MEDS: SODIUM CHLORIDE 0.9% 1,000 ML IV SCH (16:49)
[2019-12-25 17:00] VITALS: BP 134/63
--- NOTE | 2019-12-25 19:00 | NUR ---
Opening Shift Note Assumed care of patient who is resting inn bed, eyes closed respirations even and unlabored . No S/S of distress/SOB or pain. Instructed on POC and to call for assist PRN, will continue to monitor for changes Q1hr and PRN.
[2019-12-25 21:00] VITALS: BP 134/63
[2019-12-25] MEDS: MONTELUKAST SODIUM 10 MG TAB PO SCH (22:44)
[2019-12-25] MEDS: NORTRIPTYLINE HCL 10 MG CAP PO SCH (23:35)
[2019-12-26 05:00] VITALS: BP_SYST 124; BP_SYST 128; BP_DIAS 51; BP_DIAS 84
[2019-12-26] MEDS: SODIUM CHLORIDE 0.9% 1,000 ML IV SCH ×2 (05:50→14:32)
[2019-12-26] MEDS ORDERED: SODIUM ZIRCONIUM CYCL 10 GM PAK PO SCH (06:00)
[2019-12-26 06:30] LABS: Hematocrit 25.7 % (36.0-46.0)
[2019-12-26 06:34] LABS: Hemoglobin 8.5 g/dL (12.2-16.2); Mean Corpuscular Hemoglobin 30.4 pg (28.0-32.0); Mean Corpuscular Hgb Conc. 33.2 g/dL (32.0-36.0); Mean Corpuscular Volume 91.7 fL (80.0-100.0); Platelet Count (auto) 356 10^3/uL (140-450); Red Cell Distribution Width 16.4 % (11.8-14.3); White Blood Cell 7.4 10^3/uL (4.4-10.8)
[2019-12-26 06:52] LABS: Albumin 2.4 g/dL (3.4-5.0); Calcium 7.9 mg/dL (8.5-10.1); Potassium 3.6 mmol/L (3.5-5.1)
[2019-12-26 06:53] LABS: Band Neutrophils % (manual) 0; Basophils % (manual) 0 (0.0-2.0); Blast Cells 0; Metamyelocytes % 0; Myelocytes % 0; Promyelocytes % 0; Reactive Lymphocytes 0
[2019-12-26 06:55] LABS: BUN/Creatinine Ratio 10.7; Bilirubin, Total 0.6 mg/dL (0.2-1.0); Total Protein 7.2 g/dL (6.4-8.2)
[2019-12-26 07:28] LABS: Eosinophils % (manual) 3 (0-7); Lymphocytes % (manual) 14 (10.0-50.0); Monocytes % (manual) 1 (0-12)
--- NOTE | 2019-12-26 07:30 | NUR ---
Patient NPO Patient NPO for procedure.
--- NOTE | 2019-12-26 07:30 | NUR ---
Opening Note Assumed patient care from NOC RNJoss. Patient currently resting with eyes closed, respirations even and unlabored, safety precautions in place, will continue to monitor.
--- NOTE | 2019-12-26 07:30 | NUR ---
Rounds Patient currently sitting up in bed speaking with family members. No signs of distress at this time, respirations even and unlabored, safety precautions in place, will continue to monitor.
--- NOTE | 2019-12-26 07:56 | NUR ---
Radiology Spoke with Amada in radiology, per RN, patient to remain NPO for dialysis catheter placement. Per Amada, will pass on Dr. Ybarra request to review cardiology report to Dr. Foy, anticoagulants to be held prior to placement.
--- NOTE | 2019-12-26 08:17 | NUR ---
Called Ged Tutor Patient scheduled for 1000.
--- NOTE | 2019-12-26 08:35 | NUR ---
Radiology Nurse at Bedside production mechanic tin cansAmada, at bedside discussing consents with patient and family member. Patient and family consent to procedure.
[2019-12-26 09:00] VITALS: BP 124/63
[2019-12-26] MEDS: cefTRIAXone 1GM/50ML D5W 50 ML IV SCH (09:27)
--- NOTE | 2019-12-26 09:27 | NUR ---
New IV New IV started, 22 gauge left wrist, on first attempt, blood return noted, and flushes easily, no signs of distress noted at this time. Right AC IV discontinued due to infiltration, pressure dressing applied, catheter intact, will continue to monitor.
[2019-12-26] MEDS: METOPROLOL SUCCINATE XL 50 MG TAB PO SCH (10:00)
[2019-12-26] MEDS: FUROSEMIDE 40 MG TAB PO SCH (10:00)
[2019-12-26] MEDS: ALLOPURINOL 100 MG TAB PO SCH (10:00)
[2019-12-26] MEDS: FLUTICASONE PROP NASAL SPR 0.05 % (50MCG) 16GM EACHNOSTRI SCH ×2 (10:00→22:44)
[2019-12-26] MEDS: ISOSORBIDE MONONITRATE IR 20 MG TAB PO SCH ×2 (10:00→22:43)
[2019-12-26] MEDS: GABAPENTIN 100 MG CAP PO SCH (10:00)
--- NOTE | 2019-12-26 10:00 | NUR ---
Patient Off Unit Patient off unit for procedure.
[2019-12-26 10:17] LABS: Folate (Folic Acid) 11.99 ng/mL (5.38-24)
[2019-12-26] MEDS ORDERED: LIDOCAINE 2%HCL (LOCAL ANESTH.) INJ 20ML MDV ONE ×2 (10:43→11:29)
[2019-12-26] MEDS ORDERED: fentaNYL CITRATE 100 MCG/2 ML VL ONE (10:46)
[2019-12-26] MEDS ORDERED: MIDAZOLAM HCL 1MG/1ML-2 ML VIAL ONE (10:46)
[2019-12-26] MEDS ORDERED: HEPARIN SODIUM (PORCINE) 5000 UNITS/ML 1ML VIAL ONE (10:56)
[2019-12-26] MEDS ORDERED: SODIUM CHL 0.9% 1000 ML BAG XX ONE (11:30)
--- NOTE | 2019-12-26 12:15 | NUR ---
MD at Station at [facility], bc nephaniyah, hold blood pressure medication.
--- NOTE | 2019-12-26 13:08 | NUR ---
Patient Returned Patient returned to Unit. Addendum: 12/26/19 at 1657 by SARA HUNT RN RN Patient currently resting with eyes closed, patient arousable to name and light touch. No signs of distress at this time, respirations even and unlabored, safety precautions in place, will continue to monitor.
[2019-12-26 13:30] LABS: Hepatitis A Ab IgM Negative; Hepatitis B Core IgM Negative; Hepatitis B Surface Antigen Negative (Negative)
[2019-12-26 13:35] LABS: Hepatitis C Antibody Positive (Negative)
--- NOTE | 2019-12-26 14:05 | NUR ---
Dialysis Scheduled for tomorrow Per labor service representative, patient scheduled for dialysis tomorrow.
--- NOTE | 2019-12-26 14:30 | NUR ---
Monica LEYVA Left message for Dr. Ybarra, will follow up.
--- NOTE | 2019-12-26 15:40 | NUR ---
MD Spoke with Dr. Ybarra, per MD keep patient NPO after midnight for possible BANDAR tomorrow (MD to speak with Dr. Mcclain), page Dr. Xiong regarding starting anticoagulants, resume diet for dinner-Cardiac, obtain social service consult for dialysis chair time. MD aware of Hepatitis Panel results.
--- NOTE | 2019-12-26 15:51 | NUR ---
Paged Paged Dr. Xiong regarding possibly starting anticoagulants (per Dr. Ybarra request), left message with answering service.
[2019-12-26 16:00] VITALS: BP 107/63
--- NOTE | 2019-12-26 18:00 | NUR ---
Patient Rounds Patient currently resting in bed with eyes closed, no signs of distress at this time. Patient is easily arousable to name and light touch, patient drowsy since procedure, MD is aware. Respirations even and unlabored. Safety precautions in place. Will continue to monitor.
--- NOTE | 2019-12-26 19:13 | NUR ---
Closing Note Report given to Joss DREW RN.
--- NOTE | 2019-12-26 19:15 | NUR ---
Opening Shift Note Assumed care of patient, awake, confused. No S/S of distress/SOB or pain. Instructed on POC and to call for assist PRN, will continue to monitor for changes Q1hr and PRN.
[2019-12-26] MEDS ORDERED: EPOETIN ALFA 10,000 UNIT/1 ML VIAL SC ONE (21:00)
[2019-12-26 21:47] VITALS: BP 112/56
[2019-12-26] MEDS: NORTRIPTYLINE HCL 10 MG CAP PO SCH (22:43)
[2019-12-26] MEDS: MONTELUKAST SODIUM 10 MG TAB PO SCH (22:44)
[2019-12-27 05:24] VITALS: BP 118/61
[2019-12-27 06:35] LABS: Mean Corpuscular Volume 91.4 fL (80.0-100.0); Red Cell Distribution Width 16.7 % (11.8-14.3)
[2019-12-27 06:36] LABS: Hematocrit 25.2 % (36.0-46.0); Hemoglobin 8.1 g/dL (12.2-16.2); Mean Corpuscular Hemoglobin 29.5 pg (28.0-32.0); Mean Corpuscular Hgb Conc. 32.3 g/dL (32.0-36.0); Platelet Count (auto) 361 10^3/uL (140-450); Red Blood Cells 2.76 10^6/uL (4.0-5.20); White Blood Cell 7.5 10^3/uL (4.4-10.8)
[2019-12-27 06:46] LABS: Albumin 2.3 g/dL (3.4-5.0); Calcium 7.6 mg/dL (8.5-10.1); Potassium 3.3 mmol/L (3.5-5.1)
[2019-12-27 06:51] LABS: Band Neutrophils % (manual) 0; Basophils % (manual) 0 (0.0-2.0); Blast Cells 0; Eosinophils % (manual) 0 (0-7); Metamyelocytes % 0; Promyelocytes % 0; Reactive Lymphocytes 0
[2019-12-27 06:57] LABS: Bilirubin, Total 0.6 mg/dL (0.2-1.0); Total Protein 7.1 g/dL (6.4-8.2)
[2019-12-27 07:19] LABS: Lymphocytes % (manual) 5 (10.0-50.0); Monocytes % (manual) 1 (0-12); Myelocytes % 2
--- NOTE | 2019-12-27 07:30 | NUR ---
Opening Note Assumed patient care from [facility] RN, Joss. Patient currently AOX3, oriented to self, place, and situation. Patient is more alert than yesterday and is asking about dialysis. No signs of distress at this time, respirations are even and unlabored, safety precautions in place, will continue to monitor.
--- NOTE | 2019-12-27 07:52 | NUR ---
Called MD Left message with Dr. Theresa Ybarra regarding patient status and possible BANDAR.
--- NOTE | 2019-12-27 07:53 | NUR ---
Dialysis Schedule Spoke with human resources hr representative from [facility], patient scheduled to have dialysis today with Front Office Associate, [place].
--- NOTE | 2019-12-27 08:27 | NUR ---
BENITO at Bedside KIRSTEN Sinclair, at bedside, discussing discharge plan with patient. Patient refusing transfer to SNF, states she wants to return home with granddaughter. Addendum: 12/27/19 at 1454 by SARA HUNT RN RN WRONG PATIENT
--- NOTE | 2019-12-27 08:30 | NUR ---
at Station Dr. Smith at station, no new orders at this time.
[2019-12-27 08:41] VITALS: BP 120/74
[2019-12-27] MEDS: cefTRIAXone 1GM/50ML D5W 50 ML IV SCH (09:53)
[2019-12-27] MEDS: SODIUM CHLORIDE 0.9% 1,000 ML IV SCH ×2 (09:53→21:50)
--- NOTE | 2019-12-27 09:58 | NUR ---
Received call from Dr. Mcclain. Patient to be scheduled for BANDAR today at 12:30, per MD call fish farm laborer to notify and prepare consents, MD to speak with patient for informed consents.
[2019-12-27] MEDS: FUROSEMIDE 40 MG TAB PO SCH (10:00)
[2019-12-27] MEDS: FLUTICASONE PROP NASAL SPR 0.05 % (50MCG) 16GM EACHNOSTRI SCH ×2 (10:00→22:48)
[2019-12-27] MEDS: METOPROLOL SUCCINATE XL 50 MG TAB PO SCH (10:00)
[2019-12-27] MEDS: ALLOPURINOL 100 MG TAB PO SCH (10:00)
[2019-12-27] MEDS: GABAPENTIN 100 MG CAP PO SCH (10:00)
[2019-12-27] MEDS: ISOSORBIDE MONONITRATE IR 20 MG TAB PO SCH ×2 (10:00→22:52)
[2019-12-27] MEDS ORDERED: POTASSIUM EFFERVESENT TAB 25 MEQ GT ONE (10:45)
--- NOTE | 2019-12-27 10:46 | NUR ---
Assessment Patient is a 74-year-old female who is alert and oriented. Prior to admission patient lived home with family and functioned with assistance. Patient informed me her son helps her wither ADLs. Patient informed me she receives SSI with an amount of 1700dlls a month. Per patient she will return to her prior living arrangements and family will transport patient home. Advised patient there is a social service consult for outpatient dialysis. Informed patient clinical information will be faxed to [facility]. Informed patient she has a right to participate in all discharge planning. Patient verbalized understanding and agreed to discharge plan. Faxed clinical information to [facility] and [facility]. Received a call from Tarah with [facility] advising me patient has a 20% co-pay of an amount of 1,000dlls a month. Per Tarah with [facility] she will contact patient to inform her of co-pay and options for payment. Informed patient regarding co-pay. Per patient she is unable to make a payment of 1,000. Informed patient [facility] will contact her regarding different options. Will follow up with Tarah with [facility]. Addendum: 12/27/19 at 1057 by ARIAS OLIVER Amended: Links added.
--- NOTE | 2019-12-27 11:00 | NUR ---
at Bedside Dr. Mcclain at bedside discussing plan for BANDAR with patient. Patient is AOx4 at this time, is agreeable to procedure.
[2019-12-27] MEDS ORDERED: POTASSIUM CHL 20MEQ/100ML 100 ML IV ONE (11:30)
--- NOTE | 2019-12-27 11:36 | NUR ---
Family Notified Per patient, call daughterCarmelita, to notify about procedure. Daughter is aware of procedure and is also agreeable. Daughter to notify other family members. Consents obtained with charge nurse, JOHN Guevara as witness.
--- NOTE | 2019-12-27 11:58 | NUR ---
Called Dr. Ybarra returned call. Per , ask Dr. Mcclain recommendation for anticoagulants. Patient to have cardio and neuro clearance prior to discharge.
--- NOTE | 2019-12-27 12:05 | NUR ---
Patient Off Unit Patient off unit for BANDAR.
[2019-12-27] MEDS ORDERED: LIDOCAINE VISCOUS 2% 15ML UD PO ONE (12:30)
[2019-12-27] MEDS ORDERED: fentaNYL CITRATE 100 MCG/2 ML VL IV ONE (12:30)
[2019-12-27] MEDS ORDERED: MIDAZOLAM HCL 5 MG/ML-1ML VIAL IV ONE (12:30)
[2019-12-27] MEDS ORDERED: MIDAZOLAM HCL 1MG/1ML-2 ML VIAL ONE (12:46)
[2019-12-27 13:00] VITALS: BP 124/64
--- NOTE | 2019-12-27 13:51 | NUR ---
Report Received report from JOHN Christiansen.
--- NOTE | 2019-12-27 13:55 | NUR ---
Called Called Dr. Mcclain regarding Dr. Ybarra request for recommendation of anticoagulants. Left message with Lulu.
--- NOTE | 2019-12-27 13:58 | NUR ---
MD Called Dr. Mcclain returned call. Per , attempted to call Dr. Xiong, will consult with MD regarding anticoagulation therapy. Per MD, resume dialysis, medications, and diet.
--- NOTE | 2019-12-27 14:04 | NUR ---
Hold PT today per nursing. Will attempt again tomorrow.
--- NOTE | 2019-12-27 14:30 | NUR ---
Patient Returned to Unit Patient returned to unit. Respirations even and unlabored at 2L nasal cannula. No signs of distress at this time. Patient is easily arousable and oriented to self, place, and situation. Safety precautions in place, will continue to monitor.
[2019-12-27 14:32] VITALS: BP 107/62
--- NOTE | 2019-12-27 14:53 | NUR ---
Called MD Left message with Dr. Ybarra regarding update on patient status.
--- NOTE | 2019-12-27 14:56 | NUR ---
Dialysis Patient started dialysis.
--- NOTE | 2019-12-27 14:57 | NUR ---
Stress Lab Stress lab called, patient to have EEG done on M because she is currently receiving dialysis.
--- NOTE | 2019-12-27 14:58 | NUR ---
ELECTROENCEPHALOGRAM UNABLE TO COMPLETE EEG. PT CURRENTLY BEING DIALYZED. WILL REATTEMPT 12/28/19. JOHN RUIZ INFORMED.
--- NOTE | 2019-12-27 15:06 | NUR ---
Daughter Contact Information Gina Mae, . Daughter In Law Contact Information Marion Jack [phone]
--- NOTE | 2019-12-27 15:38 | NUR ---
Nutrition Assessment Notes Please refer to link for full assessment notes. Est Energy needs: 3581-7014 kcals (25-30 kcal/kgBW) Est Protein needs: 68-75 gms/day (1.1-1.2 gm/kgBW) d/t ESRD with HD Will continue to monitor and reassess prn. Addendum: 12/27/19 at [address] Amended: Links added.
[2019-12-27 16:35] VITALS: BP 118/78
[2019-12-27] MEDS: ACETAMINOPHEN 325 MG TAB PO PRN (18:04)
[2019-12-27] MEDS: DOCUSATE SOD 100 MG CAP PO PRN (18:15)
--- NOTE | 2019-12-27 18:16 | NUR ---
Dialysis End Dialysis complete. 1.5 liters removed, no signs of distress at this time, BP 127/67, HR 88.
--- NOTE | 2019-12-27 18:30 | NUR ---
Dietary Called Received orders for mechanical soft diet. Left message with dietary regarding obtaining a new tray.
--- NOTE | 2019-12-27 18:34 | NUR ---
at Bedside Dr. Ybarra at bedside. Per MD, administer miralax for constipation, obtain PT evaluation tomorrow, continue with social service consult for SNF placement. MD to speak with Dr. Mcclain regarding anticoagulation therapy.
[2019-12-27] MEDS ORDERED: POLYETHYLENE GLYCOL 17 GM PWDR PO ONE (18:45)
--- NOTE | 2019-12-27 19:00 | NUR ---
Opening Shift Note Assumed care of patient, awake and alert. No S/S of distress/SOB or pain. Instructed on POC and to call for assist PRN, will continue to monitor for changes Q1hr and PRN.
[2019-12-27 22:00] VITALS: BP 135/78
[2019-12-27] MEDS: MONTELUKAST SODIUM 10 MG TAB PO SCH (22:48)
[2019-12-27] MEDS: DONEPEZIL HYDROCHLORIDE 5 MG TAB PO SCH (22:49)
[2019-12-27] MEDS: NORTRIPTYLINE HCL 10 MG CAP PO SCH (22:49)
[2019-12-28 05:00] VITALS: BP 145/67
--- NOTE | 2019-12-28 07:30 | NUR ---
Opening Note Assumed patient care from NOC RN, Joss. Patient currently sitting up in bed. AOx4, oriented to self, place, time and situation. No signs of distress at this time, respirations even and unlabored. Safety precautions are in place, will continue to monitor.
[2019-12-28 08:44] VITALS: BP 144/70
[2019-12-28] MEDS: cefTRIAXone 1GM/50ML D5W 50 ML IV SCH (08:49)
--- NOTE | 2019-12-28 09:00 | NUR ---
EEG EEG at bedside
--- NOTE | 2019-12-28 09:26 | NUR ---
BENITO Spoke with KIRSTEN Sinclair, regarding patient's dialysis chair time status. Per Dottie, will speak with Geovanny today regarding arranging patient on MediCal for assistance with monthly deductible as patient cannot afford monthly payment. Per Dottie, will attempt to receive appropriate documents from patient/family member, if unable, will require a letter from MD for [place] application for MediCal. Per Dottie, if MD has any questions regarding dialysis chair time for discharge, please contact Dottie at extension [phone].
--- NOTE | 2019-12-28 09:50 | NUR ---
ELECTROENCEPHALOGRAM EEG COMPLETED AT BEDSIDE. PRIMARY RN SARA INFORMED.
[2019-12-28] MEDS: GABAPENTIN 100 MG CAP PO SCH (10:26)
[2019-12-28] MEDS: FLUTICASONE PROP NASAL SPR 0.05 % (50MCG) 16GM EACHNOSTRI SCH ×2 (10:26→21:39)
[2019-12-28] MEDS: ALLOPURINOL 100 MG TAB PO SCH (10:26)
[2019-12-28] MEDS: ISOSORBIDE MONONITRATE IR 20 MG TAB PO SCH ×2 (10:27→21:40)
[2019-12-28] MEDS: METOPROLOL SUCCINATE XL 50 MG TAB PO SCH (10:27)
[2019-12-28] MEDS: ACETAMINOPHEN 325 MG TAB PO PRN (10:28)
--- NOTE | 2019-12-28 10:40 | NUR ---
Monica LEYVA Left message with Dr. Theresa Ybarra.
--- NOTE | 2019-12-28 12:00 | NUR ---
BM Patient had small bowel movement. Bed lucas used. Patient cleaned and linens changed. No signs of distress at this time. Safety precautions in place. Will continue to monitor.
[2019-12-28 12:42] VITALS: BP 152/76
[2019-12-28] MEDS: SODIUM CHLORIDE 0.9% 1,000 ML IV SCH (12:53)
[2019-12-28 12:55] VITALS: BP 139/58
[2019-12-28 16:36] VITALS: BP 136/70
--- NOTE | 2019-12-28 17:06 | NUR ---
Dressing Change Dialysis catheter dressing soiled. Site cleaned and dressing changed using sterile technique. Biopatch applied to site. Patient tolerated well with no signs of distress, respirations even and unlabored. Patient denies pain at this time. Safety precautions in place, will continue to monitor.
--- NOTE | 2019-12-28 18:32 | NUR ---
MD Patient family requesting to speak with MD regarding patient status and requesting update. Addendum: 12/28/19 at 1834 by SARA HUNT RN RN Carmelita (daughter) [phone] or Tex (Son) [phone]
--- NOTE | 2019-12-28 19:12 | NUR ---
Closing Note Endorsed patient care to [facility] Rolf LOPEZ.
--- NOTE | 2019-12-28 20:00 | NUR ---
Opening Shift Note Assumed care of patient, awake and alert. No S/S of distress/SOB. Patient states abdominal pain. Patient requesting Tylenol for pain. Medication will be provided per pain protocol. Instructed on POC and to call for assist PRN, will continue to monitor for changes Q1hr and PRN.
[2019-12-28] MEDS ORDERED: POTASSIUM CHL 20 Meq TABLET PO ONE (21:15)
[2019-12-28] MEDS: DONEPEZIL HYDROCHLORIDE 5 MG TAB PO SCH (21:40)
[2019-12-28] MEDS: NORTRIPTYLINE HCL 10 MG CAP PO SCH (21:41)
[2019-12-28] MEDS: MONTELUKAST SODIUM 10 MG TAB PO SCH (21:41)
--- NOTE | 2019-12-28 21:45 | NUR ---
MD GLYNN AT STATION PER MD, PATIENT MUST BE CLEARED BY SPECIALISTS AND BU[place]O MUST FIND CHAIR TIME FOR PATIENT. WILL ENDORSE TO CHARGE AND DAYSHIFT RN.
[2019-12-28 22:00] VITALS: BP 137/74
[2019-12-28] MEDS: APIXABAN 5 MG TAB PO SCH (22:00)
[2019-12-29] MEDS: SODIUM CHLORIDE 0.9% 1,000 ML IV SCH ×2 (00:30→13:50)
[2019-12-29 05:00] VITALS: BP 143/70
[2019-12-29 06:17] LABS: Albumin 2.3 g/dL (3.4-5.0); BUN/Creatinine Ratio 9.3; Calcium 7.6 mg/dL (8.5-10.1)
[2019-12-29 06:20] LABS: Bilirubin, Total 1.1 mg/dL (0.2-1.0); Total Protein 6.9 g/dL (6.4-8.2)
[2019-12-29] MEDS ORDERED: SODIUM CHL 0.9% 1000 ML BAG XX ONE (07:00)
--- NOTE | 2019-12-29 08:15 | NUR ---
Opening Shift Note Assumed care of patient, awake, alert, and oriented. Bed in lowest/locked position, bed rails up x2, call light within reach. No S/S of distress/SOB or pain. Instructed on POC and to call for assist PRN. Will continue to monitor for changes Q1hr and PRN.
--- NOTE | 2019-12-29 08:34 | NUR ---
D/C Planning Patient mental status changes and is now confused, Spoke to patient daughter Carmelita on 12/28/2019 regarding 20% co-pay and SNF placement. Informed Jorge Mae can assist with [employer] application however, she will have to bring documentation in order to determine eligibility for [employer]i-[employer]. Informed Carmelita if patient is eligible it can take up to a month for patient to be active under [employer]irk. Informed Carmelita patient will be responsible for that 20% co-pay. Per Carmelita she will speak to her brother Tex and between both of them they will find a way to pay the 20%. Placed follow up called to Tarah with [facility] dialysis at 8:20am 12/29/2019 left message advising her to contact family to proceed with chair time.
[2019-12-29 09:00] VITALS: BP 140/69
--- NOTE | 2019-12-29 11:15 | NUR ---
DIALYSIS DIALYSIS ENDED. 2 L REMOVED. B/P 157/75 HR 101. PATIENT TOLERATED WELL
--- NOTE | 2019-12-29 12:20 | NUR ---
Nutrition Followup Note Wt 62.2kg Pt was alert and answered questions at rounds. Pt reports appetite is not great, tries to eat as much as she can. Pt was receiving dialysis 12/28 at time of rounds. Pt po intake is adequate aeb pt with 75% po x 1 per RN doc. Est Energy needs: 6421-2990 kcals (25-30 kcal/kgBW) Est Protein needs: 68-75 gms/day (1.1-1.2 gm/kgBW) d/t ESRD with HD Will continue to monitor and reassess prn. Labs: BUN 33H, Creat 3.53H, Ca 7.6L BM: 2 12/28 per RN doc Skin: BS 15 mod risk full details in animal care supervisor doc PES: Altered nutrition related lab values r/t current/chronic medical condition aeb elev RFTs, low GFR, hyponatremia, hypokalemia, severe hypoalbuminemia Comments: Will continue to closely monitor pertinent labs, PO intake and skin status prn. Will followup in 3-5 days 1) Suggest Renal Standard oral diet 2) If albumin continues trending down with improved RFTs, consider Prostat 1 pkt BID 3) Continue current plan of care Expected Outcomes/Goals: Pt to resume oral diet Pt labs to improve
[2019-12-29] MEDS: FLUTICASONE PROP NASAL SPR 0.05 % (50MCG) 16GM EACHNOSTRI SCH ×2 (12:25→22:00)
[2019-12-29] MEDS: cefTRIAXone 1GM/50ML D5W 50 ML IV SCH (12:25)
[2019-12-29] MEDS: APIXABAN 5 MG TAB PO SCH ×2 (12:25→22:00)
[2019-12-29] MEDS: ALLOPURINOL 100 MG TAB PO SCH (12:26)
[2019-12-29] MEDS: GABAPENTIN 100 MG CAP PO SCH (12:26)
[2019-12-29] MEDS: METOPROLOL SUCCINATE XL 50 MG TAB PO SCH (12:26)
[2019-12-29] MEDS: ISOSORBIDE MONONITRATE IR 20 MG TAB PO SCH ×2 (12:26→22:00)
--- NOTE | 2019-12-29 12:30 | NUR ---
PAGED PAGEAmina LAWTON PER DR Theresa GLYNN WANTING PATIENT TO BE CLEARED FOR D/C BY AUTOMOTIVE PRODUCTION WORKER. AWAITING RETURN CALL
[2019-12-29] MEDS: ACETAMINOPHEN 325 MG TAB PO PRN (12:44)
[2019-12-29 13:00] VITALS: BP 138/62
--- NOTE | 2019-12-29 13:04 | NUR ---
MD CALL RECEIVED RETURN CALL FROM DR LAWTON. PER JERED; PATIENT BEING FOLLOWED BY [facility]. PATIENT SHOULD BE ON ELIQUIS RECOMMENDED BY . PATIENT IS RECEIVING ELIQUIS AT THIS TIME. WILL CONTINUE TO MONITOR
--- NOTE | 2019-12-29 13:40 | NUR ---
D/C Planning Received a follow up call from TIMBO Dalal with [facility] at 12:25 advising me she confirm with patient Health plan [employer] and patient has a one time 1,000 deductible that needs to be met first. Per TIMBO Dalal she will have no co-pay for dialysis and [facility] is aware of this. Placed follow up call to patient family advising Carmelita and Tex patient will not have a monthly co-pay and has been confirm by TIMBO Dalal with [facility]. Informed patient son Tex and daughter Carmelita I will be working on the order for SNF. Faxed clinical information to [facility] and [facility]. Pending on accepting facility and chair time.
[2019-12-29] MEDS ORDERED: POTASSIUM EFFERVESENT TAB 25 MEQ PO ONE (16:15)
--- NOTE | 2019-12-29 16:27 | NUR ---
D/C Planning Per Yue with [facility] [phone] patient has been accepted to room 203 bed B accepting MD, Dr. Essie Sawant. Informed Yue family will transport patient to dialysis. [facility] transportation is ON WILL CALL [phone]. Per Daphney with [facility] patient Chair-Time will be Thursday, and Thursday at 15:00. Patient first treatment will be on Thursday12/31/2019 at 14:30. Placed call to son Tex to informed him of accepting facility and chair time. Informed Tex [facility] do not provide transportation to dialysis. Per Tex he will take patient to [facility] dialysis on the days she is schedule. Provided Tex with address for SNF and Dialysis. Tex verbalize understanding d/c plan. [facility] dialysis [id number] [address] .
--- NOTE | 2019-12-29 16:51 | NUR ---
LO CASE MANAGEMENT RECEIVED CALL FROM YUAN, CHRISTIAN SCIENCE HEALER OF [facility]. PER YUAN, PATIENT HAS BEEN SET UP FOR [facility] TUESDAYS, THURSDAYS, SATURDAYS AT 3PM. PATIENT TO BE AT FIRST APPOINTMENT Thursday12/31/19 AT 2:30PM. PATIENT HAS BEEN ACCEPTED TO [facility]. [facility] IS ON WILL CALL FOR TRANSPORTATION. AUTHORIZATION #[id number].
[2019-12-29 17:00] VITALS: BP 140/72
--- NOTE | 2019-12-29 17:51 | NUR ---
GONZALES GONZALES CATHETER REMOVED PER MD ORDERS. EDUCATED PATIENT TO CALL WHEN URINATES. PATIENT VERBALIZED UNDERSTANDING. APPROXIMATELY 35 ML LIGHT DORIE CLEAR URINE EMPTIED WITH CATHETER. WILL CONTINUE TO MONITOR
--- NOTE | 2019-12-29 18:40 | NUR ---
ROUNDS DURING ROUNDING PATIENT C/O BEING WET. PATIENT URINATED THE PADDING. CLEANED, CHANGED BEDDING AND GOWN. WILL CONTINUE TO MONITOR
--- NOTE | 2019-12-29 20:47 | NUR ---
TRANSFER ON HOLD AT THIS TIME PENDING COVID SWAB. SPOKE WITH HOT MIX OPERATOR AT [facility]. WAS INFORMED THAT PER WORKER, THAT PATIENT REQUIRES A COVID SWAB PRIOR TO TRANSFER. BED IS STILL AVAILABLE AT THIS TIME. WILL AWAIT RESULTS AND RESUME DC AT THAT TIME. WILL CONTINUE TO MONITOR PATIENT. FAMILY MADE AWARE OF TRANSFER PROGRESS. WILL CONTACT [facility] TO INFORM OF UPDATE.
--- NOTE | 2019-12-29 20:53 | NUR ---
PER OCCUPATIONAL THERAPIST ASSISTANTS LÓPEZ AT [facility] THEY ARE UNABLE TO ACCEPT THE PATIENT. PER OCCUPATIONAL THERAPIST ASSISTANTS, IF FROM CHOICE CASE MANAGEMENT, THEY MUST RECEIVE AN AUTHORIZATION NUMBER FOR THEIR FACILITY PRIOR TO ADMISSION. THE AUTHORIZATION NUMBER THAT WAS PROVIDED TO THIS FACILITY DOES NOT COINCIDE WITH THE ONE THAT THEY WILL RECEIVE. WILL INFORM CHARGE NURSE AT THIS TIME.
[2019-12-29] MEDS ORDERED: EPOETIN ALFA 10,000 UNIT/1 ML VIAL SC ONE (21:00)
[2019-12-29 21:45] VITALS: BP 147/73
[2019-12-29] MEDS: NORTRIPTYLINE HCL 10 MG CAP PO SCH (22:00)
[2019-12-29] MEDS: DONEPEZIL HYDROCHLORIDE 5 MG TAB PO SCH (22:00)
[2019-12-29] MEDS: MONTELUKAST SODIUM 10 MG TAB PO SCH (22:00)
--- NOTE | 2019-12-30 00:25 | NUR ---
UPON ASSESSMENT OF PATIENT FROM ROUNDING PATIENT FOUND TO BE UNRESPONSIVE. STERNAL RUB GIVEN, NO RESPONSE. PULSE FOUND, PATIENT BREATHING AT TIME. CODE ASSIST CALLED. CODE BLUE CALLED AFTER PULSE LOST. PROTOCOL FOLLOWED.
[2019-12-30] MEDS ORDERED: FLUMAZENIL 0.1 MG/ML INJ 10ML MDV IV ONE (00:30)
[2019-12-30 00:45] VITALS: BP 89/52
--- NOTE | 2019-12-30 00:45 | NUR ---
FAMILY CALLED AND INFORMED OF CURRENT SITUATION. FAMILY INFORMED TO COME IN AT THIS TIME.
[2019-12-30] MEDS ORDERED: NOREPINEPHRINE 8 MG/250ML KIT 250 ML IV ONE (00:47)
[2019-12-30 00:50] VITALS: BP 44/34
--- NOTE | 2019-12-30 01:03 | NUR ---
PT INTUBATED BY KACEY PENA WITH AN 8.0 ETT AND INITIALLY SECURED WITH TAPE AT 20 UPPER LIP. CHEST XRAY DISPLAYED RIGHT MAINSTEM INTUBATION. ETT WITHDRAWN AND RESECURED WITH TAPE A 18. PT PLACED ON VENT [id number] WITH SETTINGS AC 14, 450, +5, AND 100% FIO2. SPUTUM SAMPLE COLLECTED AND SENT TO LAB. WILL CONTINUE WITH FOLLOW UP ABG.
--- NOTE | 2019-12-30 01:05 | NUR ---
ASSUMED CARE OF 74 YR OLD FEMALE S/P CPR , PT IS INTUBATED, URESPONSIVE RIDING VENT, FIO2 100%, NO OBTAINABLE BP, PUPILS 3/FIXED, LEVOPHED GTT STARTED AND TITRATED TO OBTAIN A BP, 18G IV STARTED TO LEFT EJ BY MARTI LOPEZ
--- NOTE | 2019-12-30 01:13 | NUR ---
CODE BLUE CALLED, SEE CODE SHEET
--- NOTE | 2019-12-30 01:20 | NUR ---
RESUMED CARE AFTER ROSC, DOPAMINE GTT ADDED, SBP 92/45 NO NEURO CHANGES , SAO2 100%
--- NOTE | 2019-12-30 01:25 | NUR ---
BP 66/32, LEVOPHED GTT IS NOW MAXED OUT, ACCUCHECK DONE AT 0130, BS 55-1 AMP D50 GIVEN , #16F GONZALES INSERTED SCANT URINE OUTPUT, BP NOW 52/34, TITRATIND DOPAMINE GTT HR 101
[2019-12-30] MEDS ORDERED: VASOPRESSIN 20 UNIT/ML ONE (01:39)
--- NOTE | 2019-12-30 01:45 | NUR ---
BP 42/ VASOPRESSIN GTT ADDED, FOLLOWUP BS NOW 181
--- NOTE | 2019-12-30 02:00 | NUR ---
HEART RATE DROPPING TO 40'S, ATROPINE 1 MG GIVEN IV, NO BP NO PULSE, CODE BLUE CALLED, SEE CODE SHEET
[2019-12-30] MEDS ORDERED: EPINEPHrine HCL 250 ML IV ONE (02:01)
--- NOTE | 2019-12-30 02:10 | NUR ---
RESUMED CARE AFTER ROSC OBTAINED, EPINEPHRINE GTT ADDED, BP NOW 93/45, 1/2 NS W I AMP BICARB HUNG AT 75/HR, PREPARED PT FOR TRANSFER TO ICU
--- NOTE | 2019-12-30 02:18 | NUR ---
PT NOW IN ICU, CARE ASSUMED BY TASHA LOPEZ
--- NOTE | 2019-12-30 02:18 | NUR ---
Patient transferred to ICU. Patient arrived to ICU after coding on the tele unit. Patient arrived via hospital protocol. Patient was connected to all monitors per ICU protocol. RN inserted OG tube to LIS. Patient was noted with a distended abdomen. Patient was running levo and epi and vaso upon arrival. Patient was only noted to have two IV access points, 22g to her left wrist and an 18g IJ. Multiple RN's attempted to gain IV access but were unsuccessful. sales technician also had difficulty drawing blood from patient. IJ and wrist IV's being used at this time for pressors.
[2019-12-30 02:20] VITALS: BP 99/79
[2019-12-30] MEDS ORDERED: ALBUMIN 5% 250 ML IV ONE ×2 (02:20→03:30)
[2019-12-30] MEDS ORDERED: SODIUM BICARBONATE 8.4% INJ 50ML SYRINGE ONE ×2 (02:21→04:18)
[2019-12-30] MEDS ORDERED: PHENYLEPHRINE IV 250 ML IV ONE (02:49)
[2019-12-30 02:51] LABS: Hematocrit 12.9 % (36.0-46.0); Mean Corpuscular Hemoglobin 29.6 pg (28.0-32.0); Mean Corpuscular Hgb Conc. 29.9 g/dL (32.0-36.0); Platelet Count (auto) 189 10^3/uL (140-450); Red Cell Distribution Width 17.2 % (11.8-14.3); White Blood Cell 13.6 10^3/uL (4.4-10.8)
[2019-12-30 02:54] LABS: Hemoglobin 3.9 g/dL (12.2-16.2)
[2019-12-30 02:55] LABS: Basophils % (manual) 0 (0.0-2.0); Blast Cells 0; Eosinophils % (manual) 0 (0-7); Metamyelocytes % 0; Myelocytes % 0; Promyelocytes % 0; Reactive Lymphocytes 0
[2019-12-30 02:57] VITALS: BP 99/79
--- NOTE | 2019-12-30 02:57 | NUR ---
Randal lockhart was called: Patient began to develop a low blood pressure and HR. Patient lost pulse and RN couldn't feel a pulse. Randal lockhart was called. Patient was already running drips in her two IV's and multiple RN's still could not get another IV access. Per hospitalist, okay to use dialysis tunnel catheter for code medications d/t no other IV access at this time. Patient obtained ROSC at 0307. Hospitalist attempted to put a central line but was unsuccessful. ER doctor also came to attempt a femoral central line but was also unsuccessful. Patient continues with very low blood pressure and maxed out on 5 pressors. RN received a critical call from lab regarding patient having a low hemoglobin of 3.9. hospitalist who is at bedside gave orders for 2 units of blood to be given STAT bolus. Patient was given first unit of blood at 0308 and second unit at 0316.
[2019-12-30 03:01] LABS: Albumin 1.4 g/dL (3.4-5.0); Anion Gap 19 (5-15); Blood Urea Nitrogen 16 mg/dL (7-18); Calcium 8.5 mg/dL (8.5-10.1); Carbon Dioxide 19 mmol/L (21-32); Chloride 105 mmol/L (98-107); Glucose 128 mg/dL (74-106); Potassium 5.3 mmol/L (3.5-5.1); Sodium 143 mmol/L (136-145)
[2019-12-30 03:03] LABS: Alanine Aminotransferase 77 U/L (13-56); Aspartate Aminotransferase 432 U/L (15-37); BUN/Creatinine Ratio 6.5; GFR African American 25 mL/min; GFR Non-African American 20 mL/min
[2019-12-30 03:05] LABS: Alkaline Phosphatase 60 U/L (45-117); Bilirubin, Total 0.8 mg/dL (0.2-1.0); Total Protein 4.3 g/dL (6.4-8.2)
[2019-12-30 04:13] VITALS: BP 62/17
--- NOTE | 2019-12-30 04:15 | NUR ---
Respiratory note: TITRATED FIO2 TO 30% POST ABG RESULTS. RN AWARE.
[2019-12-30 05:08] LABS: Band Neutrophils % (manual) 6; Lymphocytes % (manual) 18 (10.0-50.0); Monocytes % (manual) 7 (0-12)
[2019-12-30] MEDS ORDERED: EPINEPHrine HCL INJECTION 4 MG in SODIUM CHL 0.9% 250 ML IV SCH (05:15)
[2019-12-30] MEDS ORDERED: DOPamine 1600MCG/ML D5W 250 ML IV SCH (05:15)
[2019-12-30] MEDS ORDERED: PHENYLEPHRINE IV 250 ML IV SCH (05:15)
[2019-12-30] MEDS ORDERED: NOREPINEPHRINE 8 MG/250ML KIT 250 ML IV SCH (05:15)
[2019-12-30] MEDS ORDERED: VASOPRESSIN 50 UNITS in D5W 5% 247.5 ML IV SCH (05:15)
--- NOTE | 2019-12-30 05:28 | NUR ---
Code Blue: Patient was noted to no longer have a blood pressure reading that was unobtainable. HR decreased into the 40 and 30, at which point, RN no longer felt a pulse. Code chantelle was called.
--- NOTE | 2019-12-30 05:33 | NUR ---
TOD: Hospitalist at bedside for code blue. Time of was called at 0533.
--- NOTE | 2019-12-30 05:40 | NUR ---
RN paged java programming professor: RN spoke with "Robby" and information was given. Per Robby, a java programming professor deputy will call back to follow up.
--- NOTE | 2019-12-30 05:50 | NUR ---
[facility]: RN called [facility] and reported . Per "Nisreen", patient is not a candidate for organ donation. Case# [id number].
--- NOTE | 2019-12-30 05:55 | NUR ---
Tool Straightener called back: RN received call from fine dining server "Rosita". Requested information was given to deputy and deputy verbalized will not be a case and body has been released. Per deputy, no case number will be given at this time and to place her full name and title for Case number: " Rosita Ferrara, Accountant Clerk".
--- NOTE | 2019-12-30 06:00 | NUR ---
Post mortem care was provided.
[2019-12-30] MEDS ORDERED: CALCIUM CHLOR(10%) 100MG/ML 10ML SYRINGE IV ONE (06:29)
[2019-12-30] MEDS ORDERED: EPINEPHrine HCL 1 MG/10 ML SYRG IV ONE (06:29)
[2019-12-30] MEDS ORDERED: SODIUM BICARBONATE 8.4% INJ 50ML SYRINGE IV ONE (06:29)
[2019-12-30] MEDS ORDERED: DOPamine 1600mCg/ml 400MG/250ml NSorD5 KIT/BAG IV ONE (06:29)
[2019-12-30] MEDS ORDERED: ATROPINE SULF 1 MG/10ml SYR IV ONE (06:29)
--- NOTE | 2019-12-30 06:30 | NUR ---
taken down to hospital mortuary.
== END 2019-12-30 06:30 | disposition expired | DRG 673 ==
LOC: ER 17:02 → EDBD 17:02 → TELE 17:03 → TELE-WESTW 22:03 → ICU WEST 12-30 02:16
PROVIDERS: ADMIT Hospitalist; ATTEND Internal Medicine
PROC: 30233N1 Transfusion of Nonautologous Red Blood Cells into Peripheral Vein, Percutaneous Approach (ICD-10-PCS; 2019-12-24)
PROC: 0JH63XZ Insertion of Tunneled Vascular Access Device into Chest Subcutaneous Tissue and Fascia, Percutaneous Approach (ICD-10-PCS; principal; 2019-12-26)
PROC: 02HV33Z Insertion of Infusion Device into Superior Vena Cava, Percutaneous Approach (ICD-10-PCS; 2019-12-26)
PROC: B5181ZA Fluoroscopy of Superior Vena Cava using Low Osmolar Contrast, Guidance (ICD-10-PCS; 2019-12-26)
PROC: B548ZZA Ultrasonography of Superior Vena Cava, Guidance (ICD-10-PCS; 2019-12-26)
PROC: 5A1D70Z Performance of Urinary Filtration, Intermittent, Less than 6 Hours Per Day (ICD-10-PCS; 2019-12-27)
PROC: B246ZZ4 Ultrasonography of Right and Left Heart, Transesophageal (ICD-10-PCS; 2019-12-27)
PROC: 5A1D70Z Performance of Urinary Filtration, Intermittent, Less than 6 Hours Per Day (ICD-10-PCS; 2019-12-29)
PROC: 5A1935Z Respiratory Ventilation, Less than 24 Consecutive Hours (ICD-10-PCS; 2019-12-30)
PROC: 0BH17EZ Insertion of Endotracheal Airway into Trachea, Via Natural or Artificial Opening (ICD-10-PCS; 2019-12-30)
PROC: 5A12012 Performance of Cardiac Output, Single, Manual (ICD-10-PCS; 2019-12-30)
DX: N17.9 Acute kidney failure, unspecified (principal); I21.4 Non-ST elevation (NSTEMI) myocardial infarction; G93.41 Metabolic encephalopathy; E43 Unspecified severe protein-calorie malnutrition; I50.33 Acute on chronic diastolic (congestive) heart failure; E87.1 Hypo-osmolality and hyponatremia; I13.2 Hypertensive heart and chronic kidney disease with heart failure and with stage 5 chronic kidney disease, or end stage renal disease; D68.9 Coagulation defect, unspecified; N39.0 Urinary tract infection, site not specified; N18.6 End stage renal disease; K29.70 Gastritis, unspecified, without bleeding; D63.1 Anemia in chronic kidney disease; M10.9 Gout, unspecified; B19.20 Unspecified viral hepatitis C without hepatic coma; E87.5 Hyperkalemia; K76.0 Fatty (change of) liver, not elsewhere classified; I48.91 Unspecified atrial fibrillation; K59.04 Chronic idiopathic constipation; J44.9 Chronic obstructive pulmonary disease, unspecified; F03.90 Unspecified dementia, unspecified severity, without behavioral disturbance, psychotic disturbance, mood disturbance, and anxiety; R26.9 Unspecified abnormalities of gait and mobility; G62.9 Polyneuropathy, unspecified; Z20.828 Contact with and (suspected) exposure to other viral communicable diseases; E87.6 Hypokalemia; F32.9 Major depressive disorder, single episode, unspecified; F41.9 Anxiety disorder, unspecified; Z79.899 Other long term (current) drug therapy; Z82.49 Family history of ischemic heart disease and other diseases of the circulatory system; Z68.24 Body mass index [BMI] 24.0-24.9, adult; Z87.440 Personal history of urinary (tract) infections; Z88.5 Allergy status to narcotic agent; I46.9 Cardiac arrest, cause unspecified
CPT/HCPCS: 36415; 36430; 36561; 36600; 51702; 70450; 71045; 76942; 77001; 80053; 80074; 80307; 80320; 81001; 82140; 82306; 82607; 82746; 82805; 82962; 83036; 83540; 83550; 83735; 83880; 83970; 84100; 84436; 84443; 84484; 85007; 85014; 85018; 85025; 85027; 85610; 85730; 86850; 86900; 86901; 86920; 87040; 87070; 87086; 87205; 90935; 93005; 93306; 93312; 93970; 94002; 95819; 96365; 96375; 97116; 97530; 99152; 99153; C9113; G0378; J0171; J0696; J0885; J1642; J1756; J2250; J3480; J7060